=== PATIENT | male | born 1955 | race Caucasian/White ===

== ENCOUNTER 2019-11-27 10:53 | Outpatient (CLI) | payer BC ==
--- NOTE | 2019-11-27 19:31 | RAD ---
LEFT FOOT THREE VIEWS: 11/27/19 A tiny calcaneal spur was noted. There is minimal ossification at the insertion of the Achilles tendo n on the calcaneus. The calcaneus otherwise appears normal, as does the remainder of the foot. IMPRESSION: Tiny calcaneal spur. POS: HOME
== END 2019-11-27 10:54 | disposition home or self-care (01) ==
LOC: BURRAD 10:53
PROVIDERS: ATTEND Family Medicine
DX: M79.672 Pain in left foot (principal); M77.32 Calcaneal spur, left foot